=== PATIENT | female | born 2000 | race Two or more races ===

== ENCOUNTER 2024-01-27 11:28 | Emergency (ER) | payer MEDICAID, OTHER ==
[~2024-01-27] VITALS: Ht 170.2 cm; Wt 90.0 kg
[2024-01-27] MEDS: SODIUM CHLORIDE 0.9% 1,000 ML IV ONE (12:09)
[2024-01-27] MEDS: MORPHINE SULFATE 4 MG/ML SYR/VIAL IV ONE (12:09)
[2024-01-27 12:15] VITALS: PULSE 67; RESP 15; TEMP 97.8; O2SAT 99
[2024-01-27] MEDS: PROPOFOL 10 MG/ML 20 ML IV ONE (12:36)
[2024-01-27 13:40] VITALS: BP 95/64; PULSE 48; RESP 15; O2SAT 100
== END 2024-01-27 14:07 | disposition home or self-care (01) ==
LOC: EDBD 11:28 → ER 11:28
DX: S43.014A Anterior dislocation of right humerus, initial encounter (principal); W07.XXXA Fall from chair, initial encounter; Y93.89 Activity, other specified; Y92.89 Other specified places as the place of occurrence of the external cause; Y99.8 Other external cause status
CPT/HCPCS: 23650; 73020; 96361; 96374; 99152; 99285; J2270; J2704; J7030